=== PATIENT | male | born 1940 | race Asian ===

== ENCOUNTER 2019-02-05 12:56 | Inpatient (IN) | payer OTHER ==
[~2019-02-05] VITALS: Ht 170.2 cm; Wt 68.0 kg
--- NOTE | 2019-02-05 13:32 | NUR ---
PT BIB RA C/O R HIP PAIN, S/P FALL, MISSED A STEP GOING DOWN THE STAIRS, PT IS AAOX4, NOT IN RESPIRATORY DISTRESS, V/S STABLE, HOOKED TO MONITOR, KEPT RESTED AND COMFORTABLE, WILL CONTINUE TO MONITOR.
--- NOTE | 2019-02-05 13:35 | NUR ---
PT TO ER BED 10. AAOX4. NO ACUTE DISTRESS. AWAITING MD MARTINEZ
[2019-02-05] MEDS ORDERED: TDAP [DIPH/PERTUSSIS/TET] 0.5 ML VIAL IM ONE ×2 (14:00→14:03)
[2019-02-05] MEDS ORDERED: IV D5/0.45 NACL 1,000 ML IV ONE ×2 (14:00→14:30)
--- NOTE | 2019-02-05 14:00 | NUR ---
IV LINE ESTABLISHED, LABS DRAWNED AND SENT TO LAB.
[2019-02-05 14:02] LABS: BASOPHILS # (AUTO) 0.1 /CMM (0.0-0.2); BASOPHILS % (AUTO) 0.4 % (0.0-2.0); EOSINOPHILS % (AUTO) 0.9 % (0.0-6.0); HEMATOCRIT 45 % (39-51); HEMOGLOBIN 15.4 g/dL (13.5-17.5); LYMPHOCYTES # (AUTO) 0.8 /CMM (0.8-4.8); LYMPHOCYTES % (AUTO) 6.4 % (20.0-44.0); MEAN CORPUSCULAR HGB CONC 34 g/dl (31.0-36.0); MEAN CORPUSCULAR VOLUME 95 fL (80-96); MONOCYTES # (AUTO) 0.6 /CMM (0.1-1.30); MONOCYTES % (AUTO) 4.8 % (2.0-12.0); NEUTROPHILS # (AUTO) 10.8 /CMM (1.8-8.9); NEUTROPHILS % (AUTO) 87.5 % (43.0-81.0); PLATELET COUNT (AUTO) 208 /CMM (150-450); RED BLOOD CELL COUNT(AUTO) 4.73 MIL/uL (4.5-6.0); WHITE BLOOD COUNT (AUTO) 12.4 K/uL (4.3-11.0)
--- NOTE | 2019-02-05 14:10 | NUR ---
CASE REPAIRER AT BEDSIDE FOR XRAY.
[2019-02-05 14:11] LABS: CALCIUM, SERUM 9.1 mg/dL (8.5-10.1); CARBON DIOXIDE 26 mmol/L (21-32); CHLORIDE 103 mmol/L (98-107); GLUCOSE 125 mg/dL (74-106); POTASSIUM 3.8 mmol/L (3.5-5.1); SODIUM SERUM 138 mmol/L (136-145); UREA NITROGEN, BLOOD 15 mg/dL (7-18)
--- NOTE | 2019-02-05 15:15 | NUR ---
FRANK PAGED, YANG PAGED TO CALL BACK
--- NOTE | 2019-02-05 17:20 | NUR ---
CALLED NURSING SUP. FOR MS BED
--- NOTE | 2019-02-05 17:36 | NUR ---
MS 308-1
--- NOTE | 2019-02-05 17:45 | NUR ---
REPORT GIVEN TO RENO MARTIN, FOR KYRA, WITH ONGOING D5 1/2 NS.
[2019-02-05] MEDS ORDERED: IV D5W 1,000 ML IV PRN (18:07)
--- NOTE | 2019-02-05 18:25 | NUR ---
CHINESE INSTRUCTOR PATIENT A/OX4, BREATHING EVEN AND UNLABORED, NO SOB NOTED, PATIENT STILL ABLE TO MOVE RIGHT HIP, INSTRUCTED PATIENT TO KEEP AFFECTED AREA STILL AND TO REST IN BED TO PREVENT FURTHER PAIN AND AGGRAVATE THE FRACTURE. PATIENT NPO AT THIS TIME. NEEDS ATTENDED AND MET, CALL LIGHT WITHIN REACH, WILL ENDORSE TO PRODUCT/INDUSTRY CONSULTANT FOR KYRA. VS BP169/81 HR 82 R20 T98.8 O2SAT 99%.
[2019-02-05] MEDS ORDERED: ONDANSETRON HCL/PF 4 MG/2 ML VIAL IVP PRN (18:30)
[2019-02-05] MEDS ORDERED: HYDROCODONE/APAP 5/325MG 1 EACH TABLET PO PRN (18:30)
[2019-02-05] MEDS ORDERED: Z GUARD REMEDY 2 OZ OINT TP PRN (18:30)
[2019-02-05] MEDS ORDERED: MAGNESIUM HYDROXIDE 30 ML UDC PO PRN (18:30)
[2019-02-05] MEDS ORDERED: ACETAMINOPHEN 325 MG TABLET PO PRN (18:30)
[2019-02-05] MEDS ORDERED: MAG HYDROX/AL HYDROX/SIMETH 30 ML UDC PO PRN (18:30)
--- NOTE | 2019-02-05 19:30 | NUR ---
RN NOTE; RECEIVED PT IN BED AWAKE AND ALERT. WITH FAMILY AT THE BED SIDE. BREATHING EVENLY. NO SOB. NAD .SKIN WARM AND DRY. REPORTED SOME DISCOMFORT UPON CHANGING POSITION. ON ONGOING IVF HYDRATION, IV SITE INTACT AND PATENT,. NEEDS ATTENDED. BED LOW LOCKED.CALL LIGHT WITHIN REACH. WILL CONT TO MONITOR ,
[2019-02-05 20:00] VITALS: BP 139/90
[2019-02-05] MEDS: HYDROCODONE/APAP 10/325MG 1 EA TABLET PO PRN (20:26)
--- NOTE | 2019-02-05 20:26 | NUR ---
NORCO 10/325 GIVEN ORDERED FOR C/O R HIP PAIN, WILL CONT TO MONITOR,
--- NOTE | 2019-02-05 20:51 | NUR ---
CALLED RADIOLOGY TO F/U WITH CT. THEY WILL PICK HIM UP SOON,
--- NOTE | 2019-02-05 20:56 | NUR ---
PT WAS PICKED UP BY BED FOR CT IN STABLE CONDITION.
--- NOTE | 2019-02-05 21:10 | NUR ---
BACK FROM CT IN STABLE CONDITION. REPORTED FEELING BATTER WITH PAIN MED
--- NOTE | 2019-02-05 23:38 | NUR ---
PT IN BED RESTING COMFORTABLY WITH THE GUPTA AT THE BED SIDE. NO C/O PAIN OR DISCOMFORT ,WILL CONT TO MONITOR
--- NOTE | 2019-02-06 00:38 | NUR ---
DR GALVIN ON THE FLOOR. ASKED MD FOR AN ORDER FOR IV PAIN MEDICATION SINCE THE PT IS NPO IN CASE HE NEEDS THAT LATER TO AVOID DELAY IN PAIN MANAGEMENT, WITH A NEW ORDER FOR MORPHINE 2MG Q4HRS PRN. NOTED
[2019-02-06] MEDS ORDERED: MORPHINE SULFATE INJ 2 MG/ML DISP.SYRIN IV PRN (01:00)
[2019-02-06] MEDS: IV D5/0.45 NACL 1,000 ML IV PRN (01:20)
--- NOTE | 2019-02-06 01:31 | NUR ---
MORPHINE GIVEN ORDERED FOR SEVERE R WRIST PAIN. WILL CONT TO MONITOR ,
[2019-02-06] MEDS ORDERED: TAMS-12 GT (04:56)
[2019-02-06] MEDS ORDERED: ASPI-1169 PO (04:56)
--- NOTE | 2019-02-06 06:26 | NUR ---
PT IN BED SLEEPING. BREATHING EVENLY. NO SOB. NO ACUTE EVENT DURING THE NIGHT, PAIN MANAGED BY MEDS. ON ONGOING IVF HYDRATION KVNG WELL. IV SITE INTACT AND PATENT. NPO. NEEDS ATTENDED, BED LOW LOCKED. CALL LIGHT WITHIN REACH, WILL CONT TO MONITOR AND WILL ENDORSE TO AM SHIFT FOR KYRA.
[2019-02-06 06:37] LABS: CALCIUM, SERUM 8.6 mg/dL (8.5-10.1); CARBON DIOXIDE 23 mmol/L (21-32); CHLORIDE 103 mmol/L (98-107); GLUCOSE 132 mg/dL (74-106); MAGNESIUM 2.4 mg/dL (1.8-2.4); POTASSIUM 3.7 mmol/L (3.5-5.1); SODIUM SERUM 137 mmol/L (136-145); UREA NITROGEN, BLOOD 11 mg/dL (7-18)
[2019-02-06 06:50] LABS: CHOLESTEROL 181 mg/dL (<200); HDL CHOLESTEROL 43 mg/dL (40-60); LDL 121 mg/dL (0-99); THYROID STIMULATING HORMONE 2.948 uIU/mL (0.358-3.74); TRIGLYCERIDES 105 mg/dL (30-150)
[2019-02-06 06:58] LABS: BASOPHILS % (AUTO) 0.6 % (0.0-2.0); EOSINOPHILS % (AUTO) 2.7 % (0.0-6.0); HEMATOCRIT 43 % (39-51); HEMOGLOBIN 14.7 g/dL (13.5-17.5); LYMPHOCYTES # (AUTO) 0.9 /CMM (0.8-4.8); LYMPHOCYTES % (AUTO) 11.5 % (20.0-44.0); MEAN CORPUSCULAR HGB CONC 34 g/dl (31.0-36.0); MEAN CORPUSCULAR VOLUME 95 fL (80-96); MONOCYTES # (AUTO) 0.7 /CMM (0.1-1.30); MONOCYTES % (AUTO) 8.5 % (2.0-12.0); NEUTROPHILS # (AUTO) 5.9 /CMM (1.8-8.9); NEUTROPHILS % (AUTO) 76.7 % (43.0-81.0); PLATELET COUNT (AUTO) 176 /CMM (150-450); WHITE BLOOD COUNT (AUTO) 7.7 K/uL (4.3-11.0)
--- NOTE | 2019-02-06 07:30 | NUR ---
MS/RN Patient received Patient received from night shift supervisor. A/O X4, vital signs within normal range for patient. Denies any pain, pedal pulses felt, leg pink and warm to touch. Call light within reach, bed in low setting, side rails X3 in upright position. Will continue to monitor and ensure safety.
[2019-02-06 08:00] VITALS: BP 121/72
[2019-02-06] MEDS ORDERED: PANTOPRAZOLE 40 MG VIAL IV SCH (09:00)
[2019-02-06] MEDS: PANTOPRAZOLE 40 MG TABLET.DR PO SCH (09:00)
--- NOTE | 2019-02-06 09:00 | NUR ---
MS/RN S/B Dr Almanzar Seen by Dr Almanzar - patient cleared for surgery. 2D echo ordered.
--- NOTE | 2019-02-06 09:59 | NUR ---
MS/RN S/B Ortho Seen by ortho - patient to remain NPO for surgery either later this afternoon or tomorrow morning, pending availability of operating room.
--- NOTE | 2019-02-06 11:00 | NUR ---
MS/RN S/B Dr Iglesias Seen by Dr Iglesias - surgery planned for tomorrow morning at 0900, no orders for consent as of this time. May eat and drink, NPO from midnight.
--- NOTE | 2019-02-06 11:17 | NUR ---
WOUND CARE CONSULT: PT PRESENTS WITH RT ELBOW ABRASION, PRESENT ON ADMISSION. RECOMMENDATIONS MADE FOR WOUND CARE AND SKIN PROTECTION. DISCUSSED WITH NURSING STAFF. WILL SEE PRN. DUARTE IN AGREEMENT WITH PLAN OF CARE. CURRENT BIJU SCORE IS 18. Addendum: 02/06/19 at 1118 by FOX PENA WNDNU Amended: Links added.
--- NOTE | 2019-02-06 12:44 | NUR ---
MS/RN X-ray X-ray of right elbow negative for fracture.
[2019-02-06] MEDS: HYDROCODONE/APAP 10/325MG 1 EA TABLET PO PRN (13:39)
[2019-02-06 16:00] VITALS: BP 95/59
--- NOTE | 2019-02-06 18:55 | NUR ---
MS/RN End note Patient remains in sable condition. Will be NPO from midnight for surgery tomorrow morning to right hip. Consent forms signed and placed in front of chart. All needs addressed, will endores to shift supervisor film processing.
--- NOTE | 2019-02-06 19:30 | NUR ---
MS/RN OPENING NOTES PT RECEIVED RESTING COMFORTABLY IN BED. AT BEDSIDE. ON ROOM AIR, BREATHING EVEN AND UNLABORED. DENIES SOB AND PAIN AT THIS TIME. IN NO ACUTE DISTRESS. NWB TO RLE. IV TO LAC PATENT AND INTACT. PLAN FOR SURGERY IN THE MORNING. NPO POST MIDNIGHT. BED IN LOW/LOCKED POSITION WITH CALL LIGHT IN REACH. HOB ELEVATED, SIDE RAILS UPX3. WILL CONTINUE TO MONITOR
[2019-02-06 20:00] VITALS: BP 132/83
[2019-02-07] MEDS: IV D5/0.45 NACL 1,000 ML IV PRN (00:13)
--- NOTE | 2019-02-07 00:34 | NUR ---
MS/RN NOTES PT ROUNDING PERFORMED. IV TO LAC INFILTRATED. INSERTED NEW IV TO LEFT HAND. FLUSHES WELL WITH GOOD BLOOD RETURN. IVF RESUMED.
--- NOTE | 2019-02-07 02:28 | NUR ---
MS/RN NOTES PT ROUNDING PERFORMED. REMAINS AT BEDSIDE. BREATHING EVEN AND UNLABORED. DENIES SOB AND PAIN AT THIS TIME. WILL CONTINUE TO MONITOR
[2019-02-07 06:37] LABS: BASOPHILS % (AUTO) 0.6 % (0.0-2.0); EOSINOPHILS % (AUTO) 4.5 % (0.0-6.0); HEMATOCRIT 43 % (39-51); HEMOGLOBIN 14.7 g/dL (13.5-17.5); LYMPHOCYTES # (AUTO) 0.9 /CMM (0.8-4.8); LYMPHOCYTES % (AUTO) 13.5 % (20.0-44.0); MEAN CORPUSCULAR HGB CONC 35 g/dl (31.0-36.0); MEAN CORPUSCULAR VOLUME 95 fL (80-96); MONOCYTES # (AUTO) 0.5 /CMM (0.1-1.30); MONOCYTES % (AUTO) 7.8 % (2.0-12.0); NEUTROPHILS # (AUTO) 5.1 /CMM (1.8-8.9); NEUTROPHILS % (AUTO) 73.6 % (43.0-81.0); PLATELET COUNT (AUTO) 159 /CMM (150-450); WHITE BLOOD COUNT (AUTO) 6.9 K/uL (4.3-11.0)
--- NOTE | 2019-02-07 06:44 | NUR ---
MS/RN CLOSING NOTES PT AWAKE, AT BEDSIDE. ON ROOM AIR, BREATHING EVEN AND UNLABORED. DENIES SOB AND PAIN AT THIS TIME. NO SIGNIFICANT CHANGES OVERNIGHT. KEPT COMFORTABLE AND ALL NEEDS MET. IV TO LEFT HAND PATENT AND INTACT RUNNING IVF ORDERED. NPO POST MIDNIGHT. WOUND CARE PROVIDED TO RIGHT ARM. CONSENTS SIGNED AND CHECKLIST COMPLETED, FLAGGED IN THE CHART. PT AND UPDATED THAT PT IS SCHEDULED FOR 1000 THIS MORNING. OTHERWISE NO NEEDS EXPRESSED AT THIS TIME. SLEPT WELL DURING SHIFT. BED IN LOW/LOCKED POSITION WITH CALL LIGHT IN REACH, HOB ELEVATED. BILATERAL UPPER SIDE RAILS IN PLACE. WILL ENDORSE TODAY SHIFT RN KYRA.
[2019-02-07 06:54] LABS: CALCIUM, SERUM 8.5 mg/dL (8.5-10.1); CARBON DIOXIDE 24 mmol/L (21-32); CHLORIDE 104 mmol/L (98-107); CREATININE 0.9 mg/dL (0.6-1.3); GLUCOSE 126 mg/dL (74-106); MAGNESIUM 2.3 mg/dL (1.8-2.4); PHOSPHORUS 2.9 mg/dL (2.5-4.9); POTASSIUM 3.6 mmol/L (3.5-5.1); SODIUM SERUM 138 mmol/L (136-145); UREA NITROGEN, BLOOD 11 mg/dL (7-18)
--- NOTE | 2019-02-07 07:30 | NUR ---
MSRN. PT NPO. PT RECEIVED WITH AT BEDSIDE. PT TOLERATING ROOM AIR WITHOUT DISTRESS AND SPO2 WNL. PT DENIES PAIN AT REST AND IS WITHOUT OBVIOUS DISTRESS, REPORTS SEVERE PAIN WHEN MOVING. PT REFUSING REPOSITIONING AT THIS TIME. PT RIGHT HIP WITHOUT OBVIOUS EXTERNAL TRAUMA, HEELS OFFLOADED. PT WITH IVC AT L HAND INTACT AND OPERATIONAL WITH IVF PER RX. PT BED IN LOWEST LOCKED POSITION WITH HANDRAILSX3 AND CALL OBANDO WITHIN REACH. PT AND BRIEFED ON TODAY'S POC AND ARE WITHOUT FURTHER NEEDS AT THIS TIME.
[2019-02-07 08:00] VITALS: BP 116/69
[2019-02-07] MEDS: PANTOPRAZOLE 40 MG TABLET.DR PO SCH (09:00)
[2019-02-07] MEDS ORDERED: BACITRACIN 50000 UNITS/VIAL ONE (10:54)
[2019-02-07] MEDS ORDERED: BUPIVACAINE 0.25% 75 MG/30 ML VIAL ONE (10:54)
[2019-02-07] MEDS ORDERED: HYDROMORPHONE INJ 2 MG/ML DISP.SYRIN ONE (11:32)
[2019-02-07 13:49] LABS: BASOPHILS % (AUTO) 0.2 % (0.0-2.0); HEMATOCRIT 43 % (39-51); HEMOGLOBIN 14.8 g/dL (13.5-17.5); LYMPHOCYTES # (AUTO) 0.8 /CMM (0.8-4.8); LYMPHOCYTES % (AUTO) 8.2 % (20.0-44.0); MEAN CORPUSCULAR HGB CONC 35 g/dl (31.0-36.0); MEAN CORPUSCULAR VOLUME 95 fL (80-96); MONOCYTES # (AUTO) 0.4 /CMM (0.1-1.30); MONOCYTES % (AUTO) 4.5 % (2.0-12.0); NEUTROPHILS # (AUTO) 8.3 /CMM (1.8-8.9); NEUTROPHILS % (AUTO) 84.1 % (43.0-81.0); PLATELET COUNT (AUTO) 149 /CMM (150-450); RED BLOOD CELL COUNT(AUTO) 4.54 MIL/uL (4.5-6.0); WHITE BLOOD COUNT (AUTO) 9.9 K/uL (4.3-11.0)
--- NOTE | 2019-02-07 13:54 | NUR ---
PT RETURNED FROM SURGERY. [facility] PRESENT. PT VITALS CHARTED, DRESSING CLEAN AND INTACT, PT RESTING COMFORTABLY, A&0X3, TOLERATING ROOM AIR WITHOUT DISTRESS AND REPORTS 1/10 PAIN.. ORDERS REVIEWED AND PLACED. PFEIFFER INTACT AND OPERATIONAL. PHARMACY ALREADY FAXED. WILL CONTINUE POC WITH INCREASED MONITORING.
[2019-02-07 13:57] LABS: CALCIUM, SERUM 8.3 mg/dL (8.5-10.1); CARBON DIOXIDE 24 mmol/L (21-32); CHLORIDE 106 mmol/L (98-107); GLUCOSE 127 mg/dL (74-106); POTASSIUM 3.8 mmol/L (3.5-5.1); SODIUM SERUM 141 mmol/L (136-145); UREA NITROGEN, BLOOD 12 mg/dL (7-18)
[2019-02-07 14:00] VITALS: BP 142/80
[2019-02-07] MEDS ORDERED: ANCEF 1 GM/50 ML D5W IV SCH ×2 (14:00)
[2019-02-07 14:15] VITALS: BP 142/82
[2019-02-07 14:30] VITALS: BP 122/75
--- NOTE | 2019-02-07 14:58 | NUR ---
MSRN. PT REPORTING PAIN TO LEG AFTER AMBULATING BY PT. PRN ADMINISTERED.
[2019-02-07 16:00] VITALS: BP 127/79
[2019-02-07] MEDS: ANCEF 1 GM/50 ML D5W IV SCH ×2 (17:09)
--- NOTE | 2019-02-07 18:45 | NUR ---
MSRN. PT REMAINS A&0X3, WITH AT BEDSIDE. PT TOLERATING ROOM AIR WITHOUT DISTRESS AND SPO2 WNL. PT REPORTS ADEQUATE PAIN MANAGEMENT AT THIS TIME. PT WITH IVC AT L HAND INTACT AND SL. PT DRESSING CLEAN DRY AND INTACT. PT BED IN LOWEST LOCKED POSITION WITH HANDRAILSX2 AND CALL OBANDO AND BELONGINGS WITHIN REACH. ALL DAY NURSE DUTIES ATTENDED TO AND PT AND WITH CONCERN OR COMPLAINT AT THIS TIME.
--- NOTE | 2019-02-07 19:57 | NUR ---
RN OPENING NOTE PT IN BED RESTING, AT BEDSIDE. A/OX4. NO S/S OF RESP DISTRESS/SOB. NO C/O PAIN AT THIS TIME. S/P CANULATED SCREW FIXATION OF R HIP PERFORMED ON 02/07/19. PT ABLE TO TOLERATE WEIGHT BEARING ON RLE. CURRENTLY AMBULATES WITH ASSIST. IV ACCESS LOCATED ON LEFT HAND 20G, CURRENTLY INFUSING D5 1/2 NS AT 75 CC/HR. SAFETY MEASURES IN PLACE, CALL LIGHT WITHIN REACH. WILL CONTINUE TO MONITOR.
[2019-02-07 20:18] VITALS: BP 107/62
[2019-02-07] MEDS: HYDROCODONE/APAP 10/325MG 1 EA TABLET PO PRN (21:45)
[2019-02-08] MEDS: ANCEF 1 GM/50 ML D5W IV SCH ×2 (00:21)
--- NOTE | 2019-02-08 06:15 | NUR ---
RN CLOSING NOTE PT IN ROOM RESTING. AWAKE AND ALERT. A/OX 4. NO S/S OF RESP DISTRESS. NO C/O PAIN AT THIS TIME. ALL PT NEEDS ANTICIPATED AND MET. SAFETY MEASURES IN PLACE, CALL LIGHT WITHIN REACH. WILL ENDORSE TO DAY SHIFT FOR KYRA.
[2019-02-08 06:42] LABS: BASOPHILS % (AUTO) 0.2 % (0.0-2.0); EOSINOPHILS % (AUTO) 0.9 % (0.0-6.0); HEMATOCRIT 39 % (39-51); HEMOGLOBIN 13.4 g/dL (13.5-17.5); LYMPHOCYTES % (AUTO) 10.9 % (20.0-44.0); MEAN CORPUSCULAR HGB CONC 34 g/dl (31.0-36.0); MEAN CORPUSCULAR VOLUME 95 fL (80-96); MONOCYTES # (AUTO) 0.9 /CMM (0.1-1.30); MONOCYTES % (AUTO) 9.8 % (2.0-12.0); NEUTROPHILS # (AUTO) 7.3 /CMM (1.8-8.9); NEUTROPHILS % (AUTO) 78.2 % (43.0-81.0); PLATELET COUNT (AUTO) 172 /CMM (150-450); RED BLOOD CELL COUNT(AUTO) 4.15 MIL/uL (4.5-6.0); WHITE BLOOD COUNT (AUTO) 9.3 K/uL (4.3-11.0)
[2019-02-08 06:48] LABS: CALCIUM, SERUM 8.3 mg/dL (8.5-10.1); CARBON DIOXIDE 24 mmol/L (21-32); CHLORIDE 104 mmol/L (98-107); CREATININE 0.9 mg/dL (0.6-1.3); GLUCOSE 117 mg/dL (74-106); POTASSIUM 3.9 mmol/L (3.5-5.1); SODIUM SERUM 138 mmol/L (136-145); UREA NITROGEN, BLOOD 18 mg/dL (7-18)
--- NOTE | 2019-02-08 07:00 | NUR ---
MS RN Opening Notes Received patient awake, resting in bed. Semi-Fowlers position, supine. Alert and oriented x3, able to make needs known. No complaints of shortness of breath or pain at this time. Respirations even and unlabored on room air, no acute distress noted. Peripheral IV to the left hand 20 gauge, intact, patent and saline locked. Updated patient on current plan of care and safety measures. Safety and fall precautions in place: bed in lowest and locked position, side rails up x2, bed alarm on, call light and personal possessions within reach. Reminded patient of safety measures, verbalized understanding. Spouse at bedside. Will continue to monitor and intervene as needed.
[2019-02-08 08:00] VITALS: BP 139/79
[2019-02-08] MEDS: ENOXAPARIN SODIUM 40 MG/0.4 ML DISP.SYRIN SQ SCH ×2 (09:00→11:06)
[2019-02-08] MEDS: PANTOPRAZOLE 40 MG TABLET.DR PO SCH (09:00)
[2019-02-08] MEDS ORDERED: ENOX40DI SQ (10:27)
[2019-02-08] MEDS ORDERED: OXYC-128 PO (10:27)
--- NOTE | 2019-02-08 11:33 | NUR ---
MS drafter automotive design layout Notes Patient awake, resting in bed. Semi-Fowlers position, supine. Alert and oriented x3, able to make needs known. No complaints of shortness of breath or pain at this time. Respirations even and unlabored on room air, no acute distress noted. Removed peripheral IV to the left hand 20 gauge with catheter tip intact. No redness, bleeding or swelling of the removal site noted. Ambulates with steady gait and front-wheeled walker DME. Cleared by physical therapist. Skin assessment completed and photo in chart. Reviewed discharge education and Exitcare with Carolyn Kapoor NP, verbalized understanding and acknowledged via signature on discharge form. Patient discharged with personal belongings, signed form. Copies given to patient. Prescription for medications given to patient, present. ID bands removed. Patient and spouse escorted to [facility] via wheelchair and LUDIN Wilburn with all belongings and DME to leave facility via private car.
== END 2019-02-08 11:36 | disposition home health service (06) | DRG 482 ==
LOC: ER 12:59 → EDBD 12:59 → MED 18:09
PROVIDERS: ADMIT Registered Nurse; ATTEND Registered Nurse
PROC: 0QS604Z Reposition Right Upper Femur with Internal Fixation Device, Open Approach (ICD-10-PCS; principal; 2019-02-07)
DX: S72.011A Unspecified intracapsular fracture of right femur, initial encounter for closed fracture (principal); N40.0 Benign prostatic hyperplasia without lower urinary tract symptoms; D72.829 Elevated white blood cell count, unspecified; W01.0XXA Fall on same level from slipping, tripping and stumbling without subsequent striking against object, initial encounter; Y93.9 Activity, unspecified; Y92.009 Unspecified place in unspecified non-institutional (private) residence as the place of occurrence of the external cause; S51.001A Unspecified open wound of right elbow, initial encounter; I34.0 Nonrheumatic mitral (valve) insufficiency; I35.1 Nonrheumatic aortic (valve) insufficiency
CPT/HCPCS: 36415; 71045-TC; 73080-TC; 73501; 73502; 73700-TC; 80048-TC; 80061-TC; 83735-TC; 84100-TC; 84443-TC; 85025-TC; 85610-TC; 85730-TC; 86850-TC; 87081-TC; 90715; 93307-TC; 97110-TC; 97116-TC; 97530-TC; A6209; A6402; C1713; C9113; G0378; J0690; J1100; J1170; J1650; J2270; J2405; J2704; J3490; J7060